=== PATIENT | female | born 1970 | race Caucasian/White ===

== ENCOUNTER 2017-08-09 13:23 | Day surgery (SDC) | payer OTHER ==
[2017-08-07 13:35] VITALS: BMI 23.3
[2017-08-09] MEDS ORDERED: MIDAZOLAM HCL 2 MG/2 ML SINGLE DOSE VIAL ONE (14:43)
[2017-08-09] MEDS ORDERED: PROPOFOL 20 ML ONE ×2 (14:43)
[2017-08-09] MEDS ORDERED: DEXAMETHASONE SOD PHOSPHATE 4 MG/1 ML VIAL ONE (14:45)
[2017-08-09] MEDS ORDERED: ONDANSETRON 4 MG/2 ML VIAL ONE ×3 (14:45→17:16)
[2017-08-09] MEDS ORDERED: KETOROLAC TROMETHAMINE 30 MG/1 ML VIAL ONE (14:45)
[2017-08-09] MEDS ORDERED: ceFAZolin SODIUM 1 GM VIAL ONE (14:45)
[2017-08-09] MEDS ORDERED: BUPIVACAINE HCL/PF 2.5 MG/ML - 30 ML VIAL IJ ONE (16:39)
[2017-08-09] MEDS ORDERED: ONDANSETRON 4 MG/2 ML VIAL IVPUSH PRN (17:18)
[2017-08-09] MEDS ORDERED: oxyCODONE HCL 5 MG TABLET PO PRN ×2 (17:18)
[2017-08-09] MEDS ORDERED: LACTATED RINGERS SOLUTION 1,000 ML IV SCH (17:30)
[2017-08-09 17:34] VITALS: TEMP 98.4
--- NOTE | 2017-08-09 18:00 | OP ---
DATE OF OPERATION: 08/09/2017 PREOPERATIVE DIAGNOSIS: Right scaphoid fracture. POSTOPERATIVE DIAGNOSIS: Right scaphoid fracture. OPERATIVE PROCEDURE: Right scaphoid open reduction and internal fixation. SURGEON: Albert Granados MD CREATIVE TECHNOLOGIST: HARRIET Mccallum ANESTHESIA: General. COMPLICATIONS: None. ESTIMATED BLOOD LOSS: Minimal. INDICATIONS FOR PROCEDURE: The patient is a 46-year-old female with the above finding, indicated for operative treatment. Risks, benefits, alternatives were discussed with the patient at length, proper informed consent was obtained. PROCEDURE: After proper identification of patient and correct operative site, patient brought to operating room, placed supine on operating room table. Prominences well padded. General anesthesia was provided by the anesthesiologist, intravenous antibiotics given. Timeout procedure was performed. Right upper extremity was prepped and draped in sterile fashion. No tourniquet was used. Thumb was hung via a fingertrap using live fluoroscopy. The distal pole of the scaphoid was percutaneously accessed. A guidewire was then driven from distal to proximal direction in the central axis of the scaphoid across the fracture site, taking care to maintain excellent alignment. Once central axis alignment of the guidewire was confirmed radiographically in multiple planes, a small incision was made over the guidewire and the guidewire was over-reamed with an Acutrak 2 mini reamer. A size 18 mm Acutrak 2 mini screw was then placed over the guidewire, obtaining central fixation across the fracture site. The fracture was found to be stable and x-rays showed proper placement and sizing of hardware. The wound was irrigated with saline and repaired with a 5-0 nylon suture. Sterile dressings and a splint were placed. Patient was reversed from anesthesia and brought to the recovery room in stable condition. She tolerated the procedure well. Norman Francisco, the seed laboratory assistant, was integral throughout the procedure, and the procedure could not have been performed without a skilled operative seed laboratory assistant. ALBERT GRANADOS M.D. EUGENIA/[id number]
[2017-08-09] MEDS ORDERED: oxyCODONE HCL 5 MG TABLET ONE (18:10)
[2017-08-09 19:23] VITALS: BP 130/80; PULSE 79
== END 2017-08-09 19:25 | disposition home or self-care (01) ==
LOC: FASU 13:23
PROVIDERS: ATTEND Orthopaedic Surgery Hand Surgery
PROC: 0PSM04Z Reposition Right Carpal with Internal Fixation Device, Open Approach (ICD-10-PCS; principal; 2017-08-09 16:30)
DX: S62.024A Nondisplaced fracture of middle third of navicular [scaphoid] bone of right wrist, initial encounter for closed fracture (principal); X58.XXXA Exposure to other specified factors, initial encounter; Y93.9 Activity, unspecified; Y92.9 Unspecified place or not applicable
CPT/HCPCS: 76000-TC-FY; 84703; 94760